=== PATIENT | female | born 1980 | race Caucasian/White ===

== ENCOUNTER 2017-04-06 08:17 | Day surgery (SDC) | payer OTHER ==
[2017-04-06 09:32] LABS: PROTHROMBIN TIME 13.4 SEC (11.4-15.4)
[2017-04-06 09:33] LABS: PARTIAL THROMBOPLASTIN TIME 31.2 SEC (23.5-35.8)
[2017-04-06] MEDS ORDERED: DIAZEPAM 5 MG TABLET ONE (09:48)
[2017-04-06 12:20] LABS: GLUCOSE,CSF 54 mg/dL (40-70)
[2017-04-06 12:38] LABS: RBC AVERAGE 2.5; RBC DILUENT USED NONE USED; RBC DILUTION FACTOR 1; RBC SIDE 1 2; RBC SIDE 2 3; STAIN REACTIVITY CHECK ACCEPTABLE; TOTAL RBC SQUARES COUNTED 225; WHITE BLOOD CELL,CSF 0 /uL (0-5)
[2017-04-06] MEDS ORDERED: OXYCODONE HCL IR 5 MG TABLET ONE (12:40)
[2017-04-06] MEDS ORDERED: OXYCODONE-ACETAMINOPHEN 5-325 MG TABLET ONE (12:41)
[2017-04-06] MEDS ORDERED: OXYCODONE-ACETAMINOPHEN 5-325 MG TABLET PO ONE (12:45)
[2017-04-06] MEDS ORDERED: OXYCODONE HCL IR 5 MG TABLET PO ONE (12:45)
[2017-04-06 13:33] VITALS: BP 101/60
--- NOTE | 2017-04-06 14:53 | RADIOLOGY REPORT (SQ) ---
EXAM DESCRIPTION: LUMBAR PUNCTURE; FLUORO/NEEDLE PLACEMENT/SPINE COMPLETED DATE/TIME: 04/06/2017 11:52 am REASON FOR STUDY: MS G35 MULTIPLE SCLEROSIS COMPARISON: None. FLUOROSCOPY TIME: 51 seconds 2 images saved to PACS. TECHNIQUE: Fluoroscopic guided lumbar puncture. LIMITATIONS: None. PROCEDURE: After written consent and assessment were obtained, the patient was brought into the fluo roscopy room and placed prone on the table. The patient's lower back was prepped in a sterile fashio n and an entry site was selected under live fluoroscopic guidance. The entry site was anesthetized wi th 6 mL of 1% lidocaine. A 22 gauge needle was advanced through the skin and into the thecal sac at t he level of left paracentral L3-4 level. After approximately 8 ml was drained, the needle was remove d and a sterile bandage was placed of the site. Specimens were sent to the lab for testing. A fluor oscopic spot image was saved to PACS confirming level access. FINDINGS: Clear CSF, opening pressure 21 cm of water, normal IMPRESSION: Lumbar puncture under fluoroscopy. No immediate complication. COMMENT: Patient medication list reviewed: Yes- Quality ID# [id number]:Eligible professional attests to doc umenting in the medical record they obtained, updated, or reviewed the patient's current medications. . Quality ID 145: Final reports for procedures using fluoroscopy that document radiation exposure erica elizabeth, or exposure time and number of fluorographic images (if radiation exposure indices are not avail able) TECHNICAL DOCUMENTATION: JOB ID: [id number] [employer]- All Rights Reserved
[2017-04-07 15:38] LABS: ALBUMIN CSF 15 mg/dL (11-48); ALBUMIN SERUM 3.9 g/dL (3.5-5.5); CSF IGG INDEX 0.5 (0.0-0.7); IGG SYNTHESIS RATE CSF -1.4 mg/day (-9.9 TO +3.3); IGG/ALBUMIN RATIO CSF 0.08 (0.00-0.25); IMMUNOGLOBULIN G CSF 1.2 mg/dL (0.0-8.6); IMMUNOGLOBULIN G SERUM 590 mg/dL (700-1600)
[2017-04-08 12:32] LABS: CSF/SERUM ALBUMIN INDEX 4 (0-8)
== END 2017-04-06 14:15 | disposition home or self-care (01) ==
LOC: RAD 08:17
PROVIDERS: ATTEND Specialist
PROC: 009U3ZX Drainage of Spinal Canal, Percutaneous Approach, Diagnostic (ICD-10-PCS; principal; 2017-04-06)
DX: G35 Multiple sclerosis (principal); Z88.0 Allergy status to penicillin
CPT/HCPCS: 36415; 62270; 77003; 82784; 82945; 83916; 84157; 85610; 85730; 87070; 87205; 89050